=== PATIENT | female | born 1940 | race Caucasian/White ===

== ENCOUNTER 2017-07-20 23:47 | Emergency (ER) | payer MEDICARE ==
[~2017-07-20] VITALS: Ht 157.5 cm; Wt 68.9 kg
[2017-07-21] MEDS ORDERED: ONDANSETRON HCL INJ 2 MG/ML VIAL IV ONE
[2017-07-21] MEDS ORDERED: SODIUM CHLORIDE 0.9% 1000ML 1,000 ML ONE
[2017-07-21] MEDS ORDERED: LEVOTHYROXINE50 MCG PO (00:46)
[2017-07-21] MEDS ORDERED: OMEPRAZOLE40 MG (00:46)
[2017-07-21] MEDS ORDERED: SIMVASTATIN20 MG PO (00:46)
[2017-07-21] MEDS ORDERED: CETIRIZINE HCL10 MG (00:46)
[2017-07-21] MEDS ORDERED: LEXAPRO10 MG PO (00:46)
[2017-07-21] MEDS ORDERED: CARBAMAZEPINE100 M1 (00:46)
[2017-07-21] MEDS ORDERED: PROMETHAZINE HCL (IM) 25 MG/ML VIAL IM ONE (01:00)
[2017-07-21] MEDS ORDERED: PROMETHAZINE HC25 M1 PO (01:25)
[2017-07-21] MEDS ORDERED: ZOFRAN ODT4 MG SL (01:25)
[2017-07-21 02:03] VITALS: BP 165/78
== END 2017-07-21 02:06 | disposition home or self-care (01) ==
LOC: FSED 23:47
DX: R11.2 Nausea with vomiting, unspecified (principal); R10.84 Generalized abdominal pain; K52.1 Toxic gastroenteritis and colitis; E78.5 Hyperlipidemia, unspecified; K21.9 Gastro-esophageal reflux disease without esophagitis
CPT/HCPCS: 80053; 85025; 87400; 96360; 96374; 99283

== ENCOUNTER 2019-07-21 03:31 | Emergency (ER) | payer MEDICARE ==
[~2019-07-21] VITALS: Ht 157.5 cm; Wt 62.6 kg
[~2019-07-21 03:31] MED LIST: CARBAMAZEPINE100 M1; CETIRIZINE HCL10 MG; LEVOTHYROXINE50 MCG PO; LEXAPRO10 MG PO; OMEPRAZOLE40 MG; PROMETHAZINE HC25 M1 PO; SIMVASTATIN20 MG PO; ZOFRAN ODT4 MG SL
[2019-07-21] MEDS ORDERED: ASPIRIN 81 MG CHEW TAB PO ONE (04:00)
[2019-07-21 04:10] LABS: BASOPHILS % 0.6 % (0.0-1.0); EOSINOPHILS # (AUTO) 0.1 (0.0-0.4); EOSINOPHILS % 2.4 % (0.0-6.0); HEMOGLOBIN 11.9 g/dL (12.0-16.0); LYMPHOCYTES # (AUTO) 1.6 (1.0-3.2); LYMPHOCYTES % 47.7 % (18.0-39.1); MEAN CORPUSCULAR HEMOGLOBIN 31.7 pg (28-32); MEAN CORPUSCULAR HGB CONC 33.1 g/dL (31-35); MONOCYTES # (AUTO) 0.3 (0.2-0.8); MONOCYTES % 7.9 % (4.4-11.3); NEUTROPHILS # (AUTO) 1.4 (2.1-6.9); NEUTROPHILS % 41.1 % (38.7-80.0); PLATELET COUNT 173 x10e3/uL (140-360); RED BLOOD COUNT 3.75 x10e6/uL (3.6-5.1); RED CELL DISTRIBUTION WIDTH 13.2 % (11.7-14.4)
[2019-07-21] MEDS ORDERED: ONDANSETRON HCL INJ 2MG/ML 2ML 2 MG/ML VIAL IV STA (04:12)
[2019-07-21 04:15] LABS: INR 0.86; PARTIAL THROMBOPLASTIN TIME 23.4 seconds (23.8-35.5); PROTHROMBIN TIME 12.2 seconds (11.9-14.5)
[2019-07-21] MEDS ORDERED: MECLIZINE HCL 12.5 MG TAB PO ONE (04:15)
[2019-07-21 04:24] LABS: ALANINE AMINOTRANSFERASE 12 IU/L (0-55); ALBUMIN/GLOBULIN RATIO 1.7 (0.8-2.0); ALKALINE PHOSPHATASE 69 IU/L (40-150); ANION GAP 14.5 mmol/L (8-16); BLOOD UREA NITROGEN 13 mg/dL (7-26); BUN/CREATININE RATIO 17 (6-25); CALCIUM 9.4 mg/dL (8.4-10.2); CARBON DIOXIDE 23 mmol/L (22-29); CHLORIDE 107 mmol/L (98-107); CREATINE KINASE 91 IU/L (29-168); CREATININE, SERUM 0.76 mg/dL (0.57-1.11); EST GLOMERULAR FILTRATION RATE > 60 ML/MIN (60-); GLUCOSE 109 mg/dL (74-118); POTASSIUM 3.5 mmol/L (3.5-5.1); SODIUM 141 mmol/L (136-145)
--- NOTE | 2019-07-21 04:49 | Diagnostic Imaging Report ---
EXAMINATION: Head CT HISTORY: Dizziness COMPARISON: None. TECHNIQUE: Multidetector axial images were obtained without contrast from the foramen magnum to the vertex . The images were reconstructed using brain and bone algorithms. Thin section brain images were reformatted into coronal and sagittal planes. Image quality: Motion/streaking artifact limits the evaluation of the skull base and posterior cranial fossa. Dose modulation, iterative reconstruction, and/or weight based adjustment of the mA/kV was utilized to reduce the radiation dose to as low as reasonably achievable. FINDINGS: Parenchyma: 1. No abnormal densities. 2. No mass or hemorrhage. No CT evidence of acute territorial vascular insult. Extra-axial spaces:No abnormal density. No extra-axial fluid collections Brain volume: Normal for age. Ventricles: No hydrocephalus or displacement. Arteries: No density suggestive of thrombus. Dural sinuses: No abnormal density. Foramen magnum: No mass, Chiari malformation, or basilar invagination. Sella: No obvious mass. Paranasal/mastoid sinuses: Imaged portions unremarkable. Skull/Scalp: No lytic or blastic lesions. No fractures. IMPRESSION: Normal head CT. Signed by: Dr. Deana Herring M.D. on 07/21/2019 4:46 AM
[2019-07-21 04:59] LABS: CLARITY,URINE CLOUDY (CLEAR); COLOR,URINE YELLOW (YELLOW)
[2019-07-21 05:00] LABS: BACTERIA,URINE MANY /HPF; BILIRUBIN,URINE NEGATIVE (NEGATIVE); EPITHELIAL CELLS,URINE MODERATE /LPF; KETONES,URINE NEGATIVE (NEGATIVE); LEUKOCYTE ESTERASE ,URINE SMALL (NEGATIVE); NITRITE,URINE NEGATIVE (NEGATIVE); PROTEIN,URINE DIPSTICK NEGATIVE (NEGATIVE); URINE UROBILINOGEN 0.2 mg/dL (0.2 - 1); WBC,URINE (MAN) >50 /HPF (0-5)
[2019-07-21] MEDS ORDERED: CEFTRIAXONE SOD 1 GM/NS 50 ML 50 ML IV ONE (06:00)
== END 2019-07-21 06:54 | disposition home or self-care (01) ==
LOC: ER 03:31
DX: N30.00 Acute cystitis without hematuria (principal); H81.11 Benign paroxysmal vertigo, right ear; I10 Essential (primary) hypertension; E78.5 Hyperlipidemia, unspecified; Z82.49 Family history of ischemic heart disease and other diseases of the circulatory system; Z88.5 Allergy status to narcotic agent
CPT/HCPCS: 36415; 70450; 80053; 81001; 82550; 82553; 84484; 85025; 85610; 85730; 99284; J0696; J2405; J8597